=== PATIENT | female | born 1980 | race Caucasian/White ===

== ENCOUNTER 2017-10-21 16:46 | Emergency (ER) | payer OTHER, MEDICAID ==
[~2017-10-21] VITALS: Ht 160 cm; Wt 45.8 kg
[~2017-10-21 16:46] MED LIST: ADDERALL XR 1010 MG PO; ALBUTEROL2.5 MG/31 INH; AMOXICILLIN 50500 MG PO; ATIVAN2 MG PO; AZITHROMYCIN 2250 MG PO; BACTRIM DS TAB1 EACH PO; CIPROFLOXACIN500 M1 PO; CLONAZEPAM 1 MG1 M1 PO; FLEXERIL; FLEXERIL PO; HYDROCODONE-AP1 EA11 PO; K-DUR 20 MEQ T20 MEQ PO; LORAZEPAM 2MG TA2 M1; LORTAB 5 MG/5001 TA1 PO; LUNESTA3 MG PO; NAPROSYN500 MG PO; NEURONTIN 300M300 M2 PO; NORCO 5-325 TA1 EACH PO; PENICILLIN VK500 MG PO; PHENAZOPYRIDIN200 M2 PO; PHENERGAN 25 MG25 M1 PO; PREDNISONE 10 M10 M1 PO; PROMETHAZINE-D120 ML PO; PYRIDIUM200 M1 PO; TRAMADOL 50 MG50 MG PO; ULTRAM 50MG TAB50 MG PO; VICODIN 5-3001 EACH PO; WELLBUTRIN SR150 MG PO
[2017-10-21] MEDS ORDERED: ROBAXIN500 MG PO (18:25)
[2017-10-21 18:37] LABS: URINE BILIRUBIN NEGATIVE (Negative); URINE BLOOD TRACE (Negative); URINE CLARITY CLEAR; URINE COLOR YELLOW; URINE GLUCOSE-RANDOM NEGATIVE (Negative); URINE KETONES 1+ (Negative); URINE LEUKOCYTES-REFLEX NEGATIVE (Negative); URINE NITRITE-REFLEX NEGATIVE (Negative); URINE PROTEIN NEGATIVE (Negative); URINE SPECIFIC GRAVITY 1.025 (1.005-1.030)
[2017-10-21 18:40] VITALS: BP 155/87
== END 2017-10-21 18:42 | disposition home or self-care (01) ==
LOC: M.ERS 16:46
PROVIDERS: Nurse Practitioner Family
DX: S30.1XXA Contusion of abdominal wall, initial encounter (principal); S00.83XA Contusion of other part of head, initial encounter; F41.9 Anxiety disorder, unspecified; F98.8 Other specified behavioral and emotional disorders with onset usually occurring in childhood and adolescence; M79.7 Fibromyalgia; Z87.891 Personal history of nicotine dependence; Z88.8 Allergy status to other drugs, medicaments and biological substances; Z90.710 Acquired absence of both cervix and uterus; Y08.89XA Assault by other specified means, initial encounter; Y93.89 Activity, other specified; Y92.89 Other specified places as the place of occurrence of the external cause; Y99.8 Other external cause status

== ENCOUNTER 2017-12-26 13:04 | Emergency (ER) | payer OTHER, MEDICAID ==
[~2017-12-26] VITALS: Ht 157.5 cm; Wt 47.6 kg
[~2017-12-26 13:04] MED LIST changes: +ROBAXIN500 MG PO
[2017-12-26] MEDS ORDERED: ONDANSETRON HCL4 M2 PO (13:44)
[2017-12-26] MEDS ORDERED: NABUMETONE 750750 M1 PO (13:44)
[2017-12-26 14:10] VITALS: BP 115/72
== END 2017-12-26 14:10 | disposition home or self-care (01) ==
LOC: M.ERS 13:04
DX: S63.502A Unspecified sprain of left wrist, initial encounter (principal); X58.XXXA Exposure to other specified factors, initial encounter; Y93.72 Activity, wrestling; Y92.89 Other specified places as the place of occurrence of the external cause; Y99.8 Other external cause status; F41.9 Anxiety disorder, unspecified; M79.7 Fibromyalgia; Z90.710 Acquired absence of both cervix and uterus; Z87.891 Personal history of nicotine dependence; Z88.8 Allergy status to other drugs, medicaments and biological substances

== ENCOUNTER 2020-02-04 20:58 | Emergency (ER) | payer OTHER, MEDICAID ==
[~2020-02-04] VITALS: Ht 160 cm; Wt 54.4 kg
[~2020-02-04 20:58] MED LIST changes: +NABUMETONE 750750 M1 PO; +ONDANSETRON HCL4 M2 PO
[2020-02-04 22:32] VITALS: BP 122/63
== END 2020-02-04 22:32 | disposition home or self-care (01) ==
LOC: M.ERS 20:58
DX: S61.211A Laceration without foreign body of left index finger without damage to nail, initial encounter (principal); Z98.51 Tubal ligation status; M79.7 Fibromyalgia; Z90.710 Acquired absence of both cervix and uterus; Z88.8 Allergy status to other drugs, medicaments and biological substances; Z87.891 Personal history of nicotine dependence; W45.8XXA Other foreign body or object entering through skin, initial encounter; Y93.89 Activity, other specified; Y92.89 Other specified places as the place of occurrence of the external cause; Y99.8 Other external cause status